=== PATIENT | male | born 1960 | race Caucasian/White ===

== ENCOUNTER 2022-07-02 19:26 | Emergency (ER) | payer OTHER ==
[~2022-07-02] VITALS: Ht 167.6 cm; Wt 82.1 kg
[2022-07-02] MEDS ORDERED: LIDOCAINE HCL 1% 20 ML VIAL ONE (20:06)
[2022-07-02] MEDS ORDERED: LIDOCAINE HCL 1% 20 ML VIAL IJ ONE (20:15)
--- NOTE | 2022-07-02 21:52 | NUR ---
Patient discharged to home in stable condition. Written and verbal after care instructions given. Patient verbalizes understanding of instructions. Stressed follow up or return to ER for worsening s/s. Patient is a/ox4, NAD noted, patient ambulated with steady gait. accompanied by SO
[2022-07-02 21:53] VITALS: BP 115/72
== END 2022-07-02 21:54 | disposition home or self-care (01) ==
LOC: ER 19:28
DX: S01.111A Laceration without foreign body of right eyelid and periocular area, initial encounter (principal); M79.642 Pain in left hand; I25.2 Old myocardial infarction; F17.210 Nicotine dependence, cigarettes, uncomplicated; I25.10 Atherosclerotic heart disease of native coronary artery without angina pectoris; W22.8XXA Striking against or struck by other objects, initial encounter; Y93.89 Activity, other specified; Y92.89 Other specified places as the place of occurrence of the external cause; Y99.8 Other external cause status
CPT/HCPCS: 99283; 73130; 12013; J3490; A4663